=== PATIENT | male | born 2000 | race Caucasian/White ===

== ENCOUNTER 2023-01-23 22:05 | Inpatient (IN) | payer BC ==
[~2023-01-23] VITALS: Ht 187.9 cm; Wt 108.6 kg
[2023-01-23 23:33] LABS: BILIRUBIN,URINE NEGATIVE (NEGATIVE); CLARITY,URINE CLEAR; COLOR,URINE YELLOW; GLUCOSE, URINE (UA) NEGATIVE (NEGATIVE); KETONES,URINE NEGATIVE (NEGATIVE); NITRITE,URINE NEGATIVE (NEGATIVE); PH,URINE 5.5 (5-9); PROTEIN,URINE NEGATIVE (NEGATIVE)
[2023-01-23 23:34] LABS: BACTERIA,URINE TRACE /HPF; LEUKOCYTE ESTERASE ,URINE NEGATIVE (NEGATIVE)
[2023-01-23] MEDS ORDERED: KETOROLAC INJ 30 MG/ML VIAL IVP STA (23:54)
--- NOTE | 2023-01-23 23:59 | ED General ---
General Chief Complaint: Cough/Cold/Flu Symptoms Stated Complaint: LOWER RT ABD PAIN, COUGH, HEADACHE Nursing Triage Note: PATIENT STATES THAT HE HAS BEEN COUGHING FOR THE PAST WEEK AND TODAY HIS LOWER RIGHT ABD BEGAN TO HURT. HE HAS BEEN TAKING DAYQUIL/NIGHTQUIL FOR THE COUGH. Source of Information: Patient History of Present Illness Date Seen by Provider: Jan 23, 2023 Time Seen by Provider: 22:22 Initial Comments PT ARRIVES VIA POV FROM HOME WITH FEMALE FRIEND PT STATE HE HAS HAD COUGH AND CONGESTION FOR THE LAST WEEK NO FEVER AT ANY TIME. NO SWEATS OR CHILLS NO DIFFICULTY BREATHING NO SINUS PAIN NO SORE THROAT C/O BODY ACHES C/O HEADACHE--MOSTLY WITH COUGHING THESE SYMPTOMS ARE NOT ANY DIFFERENT TODAY HAS NOT SOUGHT CARE UNTIL TODAY HAS BEEN TAKING DAYQUIL/NYQIL WITH A LITTLE IMPROVEMENT IN SYMPTOMS ABOUT 5-6 HOURS AGO, PT BEGAN HAVING RLQ PAIN--INITIALLY JUST THOUGHT IT WAS FROM COUGHING. PAIN IS CONSTANT, AND IS WORSE WITH ANY MOVEMENTS HE TRIED TO EAT AROUND 1800, BUT PAIN HAS CONTINUED TO GET WORSE HAS NOT TAKEN ANYTHING FOR PAIN DID START FEELING HOT TONIGHT WELL, BUT HAS NOT CHECKED TEMP NO HISTORY OF SIMILAR NO CHRONIC MEDICAL PROBLEMS OR DAILY MEDICATIONS NO PRIOR SURGERIES DENIES SMOKING, ALCOHOL OR DRUG USE PCP: NONE Allergies and Home Medications Allergies Coded Allergies: No Known Drug Allergies (Unverified , 01/23/23) Patient Home Medication List Home Medication List Reviewed: Yes Review of Systems Review of Systems Constitutional: see HPI EENTM: see HPI, nose congestion Respiratory: see HPI, cough; No short of breath, No wheezing Cardiovascular: no symptoms reported; No chest pain Gastrointestinal: see HPI, abdominal pain; No diarrhea, No nausea, No vomiting Genitourinary: no symptoms reported Musculoskeletal: see HPI (BODY ACHES) Skin: no symptoms reported Psychiatric/Neurological: See HPI, Headache Hematologic/Lymphatic: No Symptoms Reported Immunological/Allergic: no symptoms reported Past Wadsjdg-Szwdda-Hgghlg Hx Patient Social History Tobacco Use?: No Use of E-Cig and/or Vaping dev: No Substance use?: No Alcohol Use?: No Pt feels they are or have been: No Immunizations Up To Date Influenza Vaccine Up-to-Date: No; Not Current First/Initial COVID19 Vaccinat: none Past Medical History Surgeries: No Respiratory: No Cardiac: No Neurological: No Genitourinary: No Gastrointestinal: No Musculoskeletal: No Endocrine: No HEENT: No Cancer: No Psychosocial: No Integumentary: No Blood Disorders: No Physical Exam Vital Signs Vital Signs - First Documented 01/23/23 22:14 Temp 37.7 Pulse 95 Resp 20 B/P (MAP) 126/86 (99) Pulse Ox 99 O2 Delivery Room Air Capillary Refill : Less Than 3 Seconds Height, Weight, BMI Height: '" Weight: lbs. oz. kg; 30.00 BMI Method: General Appearance: No Apparent Distress, WD/WN, Other (OCCASIONAL NON- PRODUCTIVE COUGH) HEENT: PERRL/EOMI, TMs Normal, Pharynx Normal, Moist Mucous Membranes, Other (NASAL CONGESTION, CLEAR POST NASAL DRAINAGE. NO SINUS TENDERNESS) Neck: Normal Inspection Respiratory: Normal Breath Sounds, No Accessory Muscle Use, No Respiratory Distress Cardiovascular: Regular Rate, Rhythm, No Edema, No JVD, No Murmur, Normal Peripheral Pulses Gastrointestinal: Normal Bowel Sounds, No Organomegaly, No Pulsatile Mass, Soft; No Distended; Guarding, Rebound, Tenderness (MARKED RLQ TENDERNESS, WITH REBOUND, + ROVSING'S, + PSOAS, + OBTURATOR. PT LAYING SLIGHTLY ON HIS SIDE, WITH RIGHT LEG FLEXED AT HIP AND KNEE--MUCH PAIN IN RLQ WITH ANY ATTEMPT TO STRAIGHTEN RIGHT LEG, + HEEL TAP ) Back: No CVA Tenderness Extremity: Normal Inspection Neurologic/Psychiatric: Alert, Oriented x3, No Motor/Sensory Deficits, Normal Mood/Affect, senior marketing manager II-XII Norm as Tested Skin: Normal Color (FACE FLUSHED), Warm/Dry; No Rash Progress/Results/Core Measures Suspected Sepsis SIRS Temperature: Pulse: 95 Respiratory Rate: 20 Laboratory Tests 01/23/23 22:22: White Blood Count 12.8H Blood Pressure 126 /86 Mean: 99 Laboratory Tests 01/23/23 22:22: Creatinine 1.17, Platelet Count 309, Total Bilirubin 0.2 Results/Orders Lab Results Laboratory Tests Test 01/23/23 22:22 01/23/23 22:45 01/23/23 23:03 Range/Units White Blood Count 12.8 H 4.3-11.0 10^3/uL Red Blood Count 4.82 4.30-5.52 10^6/uL Hemoglobin 14.3 13.3-17.7 g/dL Hematocrit 42 40-54 % Mean Corpuscular Volume 88 80-99 fL Mean Corpuscular Hemoglobin 30 25-34 pg Mean Corpuscular Hemoglobin Concent 34 32-36 g/dL Red Cell Distribution Width 11.6 10.0-14.5 % Platelet Count 309 130-400 10^3/uL Mean Platelet Volume 9.5 9.0-12.2 fL Immature Granulocyte % (Auto) 0 % Neutrophils (%) (Auto) 67 42-75 % Lymphocytes (%) (Auto) 23 12-44 % Monocytes (%) (Auto) 8 0-12 % Eosinophils (%) (Auto) 2 0-10 % Basophils (%) (Auto) 0 0-10 % Neutrophils # (Auto) 8.6 H 1.8-7.8 10^3/uL Lymphocytes # (Auto) 2.9 1.0-4.0 10^3/uL Monocytes # (Auto) 1.0 0.0-1.0 10^3/uL Eosinophils # (Auto) 0.2 0.0-0.3 10^3/uL Basophils # (Auto) 0.0 0.0-0.1 10^3/uL Immature Granulocyte # (Auto) 0.0 0.0-0.1 10^3/uL Sodium Level 141 135-145 MMOL/L Potassium Level 3.8 3.6-5.0 MMOL/L Chloride Level 103 98-107 MMOL/L Carbon Dioxide Level 26 21-32 MMOL/L Anion Gap 12 5-14 MMOL/L Blood Urea Nitrogen 15 7-18 MG/DL Creatinine 1.17 0.60-1.30 MG/DL Estimat Glomerular Filtration Rate 92 BUN/Creatinine Ratio 13 Glucose Level 107 H 70-105 MG/DL Calcium Level 9.5 8.5-10.1 MG/DL Corrected Calcium 9.1 8.5-10.1 MG/DL Total Bilirubin 0.2 0.1-1.0 MG/DL Aspartate Amino Transf (AST/SGOT) 22 5-34 U/L Alanine Aminotransferase (ALT/SGPT) 30 0-55 U/L Alkaline Phosphatase 71 40-136 U/L Total Protein 7.6 6.4-8.2 GM/DL Albumin 4.5 3.2-4.5 GM/DL Amylase Level 42 25-125 U/L Lipase 10 8-78 U/L Influenza Type A (RT-PCR) Not Detected Not Detecte Influenza Type B (RT-PCR) Not Detected Not Detecte SARS-CoV-2 RNA (RT-PCR) Not Detected Not Detecte Urine Color YELLOW Urine Clarity CLEAR Urine pH 5.5 5-9 Urine Specific [place] 1.025 H 1.016-1.022 Urine Protein NEGATIVE NEGATIVE Urine Glucose (UA) NEGATIVE NEGATIVE Urine Ketones NEGATIVE NEGATIVE Urine Nitrite NEGATIVE NEGATIVE Urine Bilirubin NEGATIVE NEGATIVE Urine Urobilinogen 0.2 < = 1.0 MG/DL Urine Leukocyte Esterase NEGATIVE NEGATIVE Urine RBC (Auto) NEGATIVE NEGATIVE Urine RBC NONE /HPF Urine WBC NONE /HPF Urine Squamous Epithelial Cells NONE /HPF Urine Crystals NONE /LPF Urine Bacteria TRACE /HPF Urine Casts NONE /LPF Urine Mucus SMALL H /LPF Urine Culture Indicated NO My Orders Orders - JAIRO POWELL DO Covid 19 Inhouse Test (01/23/23 22:22) Ua Culture If Indicated (01/23/23 22:22) Influenza A And B By Pcr (01/23/23 22:22) Ed Iv/Invasive Line Start (01/23/23 23:54) Monitor-Rhythm Ecg Trace Only (01/23/23 23:54) Amylase (01/23/23 23:54) Cbc And Automated Diff (01/23/23 23:54) Comprehensive Metabolic Panel (01/23/23 23:54) Lipase (01/23/23 23:54) Ed Iv/Invasive Line Start (01/23/23 23:54) Lactated Ringers 1,000 Ml (Lactated Ring (01/24/23 00:00) Ketorolac Injection (Ketorolac Injection (01/23/23 23:54) Ct Abd/Pelv W (Appendicitis) (01/24/23 00:01) Chest Pa/Lat (2 View) (01/24/23 00:01) Lactated Ringers 1,000 Ml (Lactated Ring (01/24/23 00:07) Ketorolac Injection (Ketorolac Injection (01/24/23 00:07) Iohexol Injection (Omnipaque 350 Mg/Ml 1 (01/24/23 00:45) Received Contrast (Hold Metformin- Contr (01/24/23 00:45) Ns (Ivpb) 100 Ml (Sodium Chloride 0.9% 1 (01/24/23 00:45) Piperacillin/Tazobactam (Piperacillin/Ta (01/24/23 01:15) Ed Iv/Invasive Line Start (01/24/23 01:11) Lactated Ringers 1,000 Ml (Lactated Ring (01/24/23 01:15) Medications Given in ED Current Medications Medications Dose Ordered Sig/Jono Route Start Time Stop Time Status Last Admin Dose Admin Iohexol 100 ml ONCE ONCE IV 01/24/23 00:45 01/24/23 00:46 DC 01/24/23 00:35 80 ML Lactated Ringer's 1,000 ml @ 0 mls/hr Q0M ONCE IV 01/24/23 00:00 01/24/23 00:01 DC 01/24/23 00:09 999 MLS/HR Lactated Ringer's 1,000 ml @ 0 mls/hr Q0M ONCE IV 01/24/23 01:15 01/24/23 01:16 DC 01/24/23 01:19 999 MLS/HR Piperacillin Sod/ Tazobactam Sod 4.5 gm/Sodium Chloride 100 ml @ 200 mls/hr ONCE ONCE IV 01/24/23 01:15 01/24/23 01:44 DC 01/24/23 01:19 200 MLS/HR Sodium Chloride 100 ml ONCE ONCE IV 01/24/23 00:45 01/24/23 00:46 DC 01/24/23 00:35 80 ML Vital Signs/I&O 01/23/23 01/23/23 22:14 23:56 Temp 37.7 37.2 Pulse 95 86 Resp 20 20 B/P (MAP) 126/86 (99) 125/79 (94) Pulse Ox 99 98 O2 Delivery Room Air Room Air Capillary Refill : Less Than 3 Seconds Blood Pressure Mean: 99 Progress Note : Progress Note PLACED IN ISOLATION ROOM PPE WORN VITALS ON ARRIVAL: TEMP 37.7=99.8, HR 95, RR 20, BP 126/86, O2 SAT 99% ON ROOM AIR GIVEN: -IV FLUIDS -TORADOL--SIGNIFICANT IMPROVEMENT IN PAIN -ZOSYN LABS: -CBC WITH WBC 12.8, OTHERWISE NORMAL -CMP NORMAL -AMYLASE/LIPASE NORMAL -UA CLEAR -COVID/FLU NEGATIVE CT WITH APPENDICITIS, NO PERFORATION AND NO ABSCESS CXR IS NORMAL, PENDING RADIOLOGIST REVIEW UNEVENTFUL ER STAY VITALS STABLE SYMPTOMS IMPROVED AT TIME OF ADMIT DISCUSSED TEST RESULTS, NEED FOR ADMIT AND PT IS AGREEABLE TO PLAN Diagnostic Imaging Comments CXR--NO ACUTE PROCESS, PENDING RADIOLOGIST REVIEW CT ABDOMEN/PELVIS--+ APPENDICITIS WITHOUT PERFORATION OR ABSCESS, PER [facility] VIA PHONE AND FAX AT 010 Reviewed: Reviewed by Me, Discussed w/Radiologist Departure Communication (Admissions) 102--SPOKE WITH DR. AGEE, SURGEON BLASTING MINER. ACCEPTS PT FOR ADMIT. ORDERS NOTED Impression Primary Impression: Appendicitis Additional Impression: Upper respiratory infection Disposition: ADMITTED INPATIENT Condition: Improved Admissions Decision to Admit Reason: Admit from ER (General) Decision to Admit/Date: Jan 24, 2023 Time/Decision to Admit Time: 01:05 Departure-Patient Inst. Referrals: NO,LOCAL PHYSICIAN (PCP/Family) Primary Care Physician JAIRO POWELL DO Jan 23, 2023 23:59
[2023-01-24] VITALS (11 sets, daily range): BP systolic 108–127; BP diastolic 52–80
[2023-01-24 00:01] LABS: BASOPHILS % (AUTO) 0 % (0-10); EOSINOPHILS # (AUTO) 0.2 10^3/uL (0.0-0.3); EOSINOPHILS % (AUTO) 2 % (0-10); HEMATOCRIT 42 % (40-54); HEMOGLOBIN 14.3 g/dL (13.3-17.7); LYMPHOCYTES # (AUTO) 2.9 10^3/uL (1.0-4.0); LYMPHOCYTES % (AUTO) 23 % (12-44); MEAN CORPUSCULAR HEMOGLOBIN 30 pg (25-34); MEAN CORPUSCULAR HGB CONC 34 g/dL (32-36); MEAN CORPUSCULAR VOLUME 88 fL (80-99); MEAN PLATELET VOLUME 9.5 fL (9.0-12.2); MONOCYTES % (AUTO) 8 % (0-12); NEUTROPHILS # (AUTO) 8.6 10^3/uL (1.8-7.8); NEUTROPHILS % (AUTO) 67 % (42-75); PLATELET COUNT 309 10^3/uL (130-400); WHITE BLOOD COUNT 12.8 10^3/uL (4.3-11.0)
[2023-01-24 00:03] LABS: ALBUMIN 4.5 GM/DL (3.2-4.5); POTASSIUM 3.8 MMOL/L (3.6-5.0)
[2023-01-24 00:04] LABS: CALCIUM 9.5 MG/DL (8.5-10.1)
[2023-01-24 00:06] LABS: TOTAL PROTEIN 7.6 GM/DL (6.4-8.2)
[2023-01-24 00:07] LABS: BILIRUBIN,TOTAL 0.2 MG/DL (0.1-1.0)
[2023-01-24] MEDS ORDERED: KETOROLAC INJ 30 MG/ML VIAL ONE (00:07)
[2023-01-24] MEDS ORDERED: LACTATED RINGERS 1,000 ML 1,000 ML IV ONE ×3 (00:07→01:15)
[2023-01-24 00:09] LABS: CREATININE SERUM 1.17 MG/DL (0.60-1.30)
[2023-01-24] MEDS ORDERED: NS 100 ML (IVPB) BAG IV ONE (00:45)
[2023-01-24] MEDS ORDERED: IOHEXOL 350 MG/ML 100 ML (OMNIPAQUE 350) VIAL IV ONE (00:45)
[2023-01-24] MEDS ORDERED: HOLD METFORMIN - RECEIVED CONTRAST 20 ML VIAL IV SCH (00:45)
[2023-01-24] MEDS ORDERED: PIPERACILLIN/Tazobactam 4.5 GM in NS (IVPB) 100 ML 100 ML IV ONE (01:15)
[2023-01-24] MEDS: D5 1/2NS + KCL 20 MEQ/L 1000ML 1,000 ML IV SCH ×2 (02:29→08:40)
[2023-01-24] MEDS ORDERED: KETOROLAC INJ 30 MG/ML VIAL IVP PRN (02:30)
[2023-01-24] MEDS ORDERED: fentaNYL INJECTION 100 MCG/2 ML VIAL IV PRN (02:30)
[2023-01-24] MEDS ORDERED: ONDANSETRON INJECTION 4 MG/2 ML (SDV) IV PRN (02:30)
[2023-01-24 05:48] LABS: BASOPHILS # (AUTO) 0.1 10^3/uL (0.0-0.1); BASOPHILS % (AUTO) 1 % (0-10); EOSINOPHILS # (AUTO) 0.2 10^3/uL (0.0-0.3); EOSINOPHILS % (AUTO) 2 % (0-10); HEMATOCRIT 36 % (40-54); HEMOGLOBIN 12.7 g/dL (13.3-17.7); LYMPHOCYTES # (AUTO) 2.8 10^3/uL (1.0-4.0); LYMPHOCYTES % (AUTO) 23 % (12-44); MEAN CORPUSCULAR HEMOGLOBIN 30 pg (25-34); MEAN CORPUSCULAR HGB CONC 35 g/dL (32-36); MEAN CORPUSCULAR VOLUME 87 fL (80-99); MEAN PLATELET VOLUME 9.2 fL (9.0-12.2); MONOCYTES # (AUTO) 0.9 10^3/uL (0.0-1.0); MONOCYTES % (AUTO) 8 % (0-12); NEUTROPHILS # (AUTO) 8.4 10^3/uL (1.8-7.8); NEUTROPHILS % (AUTO) 68 % (42-75); PLATELET COUNT 222 10^3/uL (130-400); WHITE BLOOD COUNT 12.4 10^3/uL (4.3-11.0)
[2023-01-24 06:31] LABS: CALCIUM 8.6 MG/DL (8.5-10.1); CREATININE SERUM 1.01 MG/DL (0.60-1.30); POTASSIUM 3.7 MMOL/L (3.6-5.0)
--- NOTE | 2023-01-24 06:51 | Diagnostic Imaging Report ---
PROCEDURE: CT abdomen and pelvis with contrast, rule out appendicitis, 01/24/2023. TECHNIQUE: Multiple contiguous axial images were obtained through the abdomen and pelvis after the administration of intravenous contrast. All CT scans use one or more of the following dose optimizing techniques: automated exposure control, MA and/or KvP adjustment based on patient size and exam type or iterative reconstruction. INDICATION: Cough and fever. Right lower quadrant pain. FINDINGS: The gallbladder is contracted. Liver and spleen unremarkable. Adrenal glands and pancreas normal. Kidneys unremarkable. Lung bases clear. The appendix is dilated measuring almost 1 cm in thickness. Minimal adjacent inflammatory change is seen. There are adjacent prominent lymph nodes likely reactive. There is no obstructive process. There is no free fluid. No free air or abscess formation. There is no acute osseous abnormality. Multiple hyperdensities throughout the osseous structures, likely bone islands. IMPRESSION: 1. Findings suspicious for acute appendicitis with adjacent likely reactive lymphadenopathy. No free air or abscess appreciated. Otherwise incidental findings as above. 2. The pertinent findings agree with the preliminary report. Dictated by: Dictated on workstation # [id number]
[2023-01-24] MEDS ORDERED: PIPERACILLIN/Tazobactam 4.5 GM in NS (IVPB) 100 ML 100 ML IV SCH (08:00)
--- NOTE | 2023-01-24 08:02 | Diagnostic Imaging Report ---
INDICATION: Cough and fever EXAMINATION: Two-view chest 01/24/2023 FINDINGS: The cardiomediastinal silhouette is unremarkable. The pulmonary vasculature is within normal limits. The lungs and pleural spaces are clear. IMPRESSION: No evidence of an acute cardiopulmonary process. Dictated by: Dictated on workstation # [id number]
--- NOTE | 2023-01-24 09:05 | History & Physical-Surgical ---
History of Present Illness History of Present Illness Patient Consulted On(augusto/time) 01/24/23 09:00 Time Seen by Provider: 08:39 History of Present Illness Surgery asked to admit regarding Acute Appendicitis HPI per ED: PT ARRIVES VIA POV FROM HOME WITH FEMALE FRIEND, PT STATE HE HAS HAD COUGH AND CONGESTION FOR THE LAST WEEK, NO FEVER AT ANY TIME. NO SWEATS OR CHILLS, NO DIFFICULTY BREATHING, NO SINUS PAIN, NO SORE THROAT C/O BODY ACHES, C/O HEADACHE--MOSTLY WITH COUGHING, THESE SYMPTOMS ARE NOT ANY DIFFERENT TODAY, HAS NOT SOUGHT CARE UNTIL TODAY, HAS BEEN TAKING DAYQUIL/NYQIL WITH A LITTLE IMPROVEMENT IN SYMPTOMS, ABOUT 5-6 HOURS AGO, PT BEGAN HAVING RLQ PAIN--INITIALLY JUST THOUGHT IT WAS FROM COUGHING. PAIN IS CONSTANT, AND IS WORSE WITH ANY MOVEMENTS, HE TRIED TO EAT AROUND 1800, BUT PAIN HAS CONTINUED TO GET WORSE, HAS NOT TAKEN ANYTHING FOR PAIN, DID START FEELING HOT TONIGHT WELL, BUT HAS NOT CHECKED TEMP, NO HISTORY OF SIMILAR, NO CHRONIC MEDICAL PROBLEMS OR DAILY MEDICATIONS, NO PRIOR SURGERIES,DENIES SMOKING, ALCOHOL OR DRUG USE When I spoke to pt this am he states he still has pain in RLQ, but slightly better. He denies loss of appetite; "I thought I was just hungry and I ate yesterday, but it didn't get better". He has not eaten since midnight. He describes pain as sharp and constant, rating it 4-5 out of 10. He denied any nausea or vomiting. Allergies and Home Medications Allergies Coded Allergies: No Known Drug Allergies (Unverified , 01/23/23) Patient Home Medication List Home Medication List Reviewed: Yes Past Hetmrib-Rbfvsv-Azcgso Hx Patient Social History Smoking Status: Never a Smoker Alcohol Use?: No Surgeries History of Surgeries: Yes Surgeries: Orthopedic (left shoulder twice) Respiratory History of Respiratory Disorde: No Cardiovascular History of Cardiac Disorders: No Neurological History of Neurological Disord: No Genitourinary History of Genitourinary Disor: No Gastrointestinal History of Gastrointestinal Di: No Musculoskeletal History of Musculoskeletal Dis: No Endocrine History of Endocrine Disorders: No HEENT History of HEENT Disorders: No Cancer History of Cancer: No Psychosocial History of Psychiatric Problem: No Integumentary History of Skin or Integumenta: No Blood Transfusions History of Blood Disorders: No Family Medical History Significant Family History: Heart Disease (Grandmother), Diabetes (grandmother) Review of Systems-General Constitutional: No chills, No diaphoresis EENTM: No blurred vision, No double vision, No mouth swelling, No epistaxis Respiratory: No cough, No dyspnea on exertion Cardiovascular: No chest pain, No edema, No palpitations Gastrointestinal: abdominal pain; No jaundice, No loss of appetite, No nausea, No vomiting Genitourinary: No dysuria, No frequency, No hematuria Musculoskeletal: No back pain; joint pain, joint swelling; No muscle stiffness Skin: No change in color, No change in hair/nails Psychiatric/Neurological: Denies Anxiety, Denies Depressed, Denies Seizure, Denies Tremors Physical Exam-General Problems Physical Exam Vital Signs Vital Signs - First Documented 01/23/23 22:14 Temp 37.7 Pulse 95 Resp 20 B/P (MAP) 126/86 (99) Pulse Ox 99 O2 Delivery Room Air Capillary Refill : Less Than 3 Seconds General Appearance: WD/WN, mild distress Eyes: Bilateral Eye PERRL, Bilateral Eye EOMI HEENT: pharynx normal; No scleral icterus (R), No scleral icterus (L) Neck: non-tender, supple Respiratory: chest non-tender, lungs clear, normal breath sounds, no respiratory distress, no accessory muscle use Cardiovascular: regular rate, rhythm, no murmur Gastrointestinal: soft, no organomegaly, tenderness (RLQ with light palpation); No hernia Back: no CVA tenderness, no vertebral tenderness Extremities: non-tender, no pedal edema, no calf tenderness, normal capillary refill Neurologic/Psychiatric: distribution manager II-XII nml as tested, no motor/sensory deficits, alert, normal mood/affect, oriented x 3 Skin: normal color, warm/dry Lymphatic: no adenopathy (neck, axilla or groin) Data Review Labs Laboratory Tests 01/23/23 22:22: White Blood Count 12.8H, Red Blood Count 4.82, Hemoglobin 14.3, Hematocrit 42, Mean Corpuscular Volume 88, Mean Corpuscular Hemoglobin 30, Mean Corpuscular Hemoglobin Concent 34, Red Cell Distribution Width 11.6, Platelet Count 309, Mean Platelet Volume 9.5, Immature Granulocyte % (Auto) 0, Neutrophils (%) (Auto) 67, Lymphocytes (%) (Auto) 23, Monocytes (%) (Auto) 8, Eosinophils (%) (Auto) 2, Basophils (%) (Auto) 0, Neutrophils # (Auto) 8.6H, Lymphocytes # (Auto) 2.9, Monocytes # (Auto) 1.0, Eosinophils # (Auto) 0.2, Basophils # (Auto) 0.0, Immature Granulocyte # (Auto) 0.0, Sodium Level 141, Potassium Level 3.8, Chloride Level 103, Carbon Dioxide Level 26, Anion Gap 12, Blood Urea Nitrogen 15, Creatinine 1.17, Estimat Glomerular Filtration Rate 92, BUN/Creatinine Ratio 13, Glucose Level 107H, Calcium Level 9.5, Corrected Calcium 9.1, Total Bilirubin 0.2, Aspartate Amino Transf (AST/SGOT) 22, Alanine Aminotransferase (ALT/SGPT) 30, Alkaline Phosphatase 71, Total Protein 7.6, Albumin 4.5, Amylase Level 42, Lipase 10 01/23/23 22:45: Influenza Type A (RT-PCR) Not Detected, Influenza Type B (RT-PCR) Not Detected, SARS-CoV-2 RNA (RT-PCR) Not Detected 01/23/23 23:03: Urine Color YELLOW, Urine Clarity CLEAR, Urine pH 5.5, Urine Specific [place] 1.025H, Urine Protein NEGATIVE, Urine Glucose (UA) NEGATIVE, Urine Ketones NEGATIVE, Urine Nitrite NEGATIVE, Urine Bilirubin NEGATIVE, Urine Urobilinogen 0.2, Urine Leukocyte Esterase NEGATIVE, Urine RBC (Auto) NEGATIVE, Urine RBC NONE, Urine WBC NONE, Urine Squamous Epithelial Cells NONE, Urine Crystals NONE, Urine Bacteria TRACE, Urine Casts NONE, Urine Mucus SMALLH, Urine Culture Indicated NO 01/24/23 05:29: White Blood Count 12.4H, Red Blood Count 4.19L, Hemoglobin 12.7L, Hematocrit 36L , Mean Corpuscular Volume 87, Mean Corpuscular Hemoglobin 30, Mean Corpuscular Hemoglobin Concent 35, Red Cell Distribution Width 11.6, Platelet Count 222, Mean Platelet Volume 9.2, Immature Granulocyte % (Auto) 0, Neutrophils (%) (Auto) 68, Lymphocytes (%) (Auto) 23, Monocytes (%) (Auto) 8, Eosinophils (%) (Auto) 2, Basophils (%) (Auto) 1, Neutrophils # (Auto) 8.4H, Lymphocytes # (Auto) 2.8, Monocytes # (Auto) 0.9, Eosinophils # (Auto) 0.2, Basophils # (Auto) 0.1, Immature Granulocyte # (Auto) 0.0, Sodium Level 138, Potassium Level 3.7, Chloride Level 105, Carbon Dioxide Level 26, Anion Gap 7, Blood Urea Nitrogen 14, Creatinine 1.01, Estimat Glomerular Filtration Rate 109, BUN/Creatinine Ratio 14, Glucose Level 118H, Calcium Level 8.6 Radiology Date of Exam:01/24/23 CT ABD/PELV W (APPENDICITIS) PROCEDURE: CT abdomen and pelvis with contrast, rule out appendicitis, 01/24/2023. TECHNIQUE: Multiple contiguous axial images were obtained through the abdomen and pelvis after the administration of intravenous contrast. All CT scans use one or more of the following dose optimizing techniques: automated exposure control, MA and/or KvP adjustment based on patient size and exam type or iterative reconstruction. INDICATION: Cough and fever. Right lower quadrant pain. FINDINGS: The gallbladder is contracted. Liver and spleen unremarkable. Adrenal glands and pancreas normal. Kidneys unremarkable. Lung bases clear. The appendix is dilated measuring almost 1 cm in thickness. Minimal adjacent inflammatory change is seen. There are adjacent prominent lymph nodes likely reactive. There is no obstructive process. There is no free fluid. No free air or abscess formation. There is no acute osseous abnormality. Multiple hyperdensities throughout the osseous structures, likely bone islands. IMPRESSION: 1. Findings suspicious for acute appendicitis with adjacent likely reactive lymphadenopathy. No free air or abscess appreciated. Otherwise incidental findings as above. 2. The pertinent findings agree with the preliminary report. Dictated on workstation # [id number] Dict: 01/24/23 0636 Trans: 01/24/23 0650 [facility] [id number] Interpreted by: EZEKIEL GARCÍA MD Assessment/Plan Assessment/Plan Admission Diagonsis Acute Appendicitis Admission Status: Observation Assessment/Plan Acute Appendicitis I reviewed the CT myself and spoke with the ER physician last night about this case. Pt still has mildly elevated WBC at 12.4 and has a dilated appendix with mild inflammatory changes around it. I gave the pt options, he could try ABX and no surgery or he could have the appendix taken out. He did not want to try non-operative management. I will get consent for Laparoscopic Appendectomy and all other indicated procedures. He was admitted and made NPO, started on Zosyn, pain meds as needed and IV fluids. I went over the procedure and discussed risks and complications not limited to; pain, bleeding, infection, scar, damage to bowel and need for further procedure. All questions answered to his satisfaction. DAMION AGEE DO Jan 24, 2023 09:05
[2023-01-24] MEDS ORDERED: ROCURONIUM 50 MG/5 ML VIAL IV ONE (09:54)
[2023-01-24] MEDS ORDERED: proPOfol INJECTION 200 MG/20 ML VIAL IV ONE (09:54)
[2023-01-24] MEDS ORDERED: fentaNYL INJECTION 100 MCG/2 ML VIAL ONE (09:54)
[2023-01-24] MEDS ORDERED: LIDOCAINE PF 2% 5 ML VIAL ONE (09:54)
[2023-01-24] MEDS ORDERED: ONDANSETRON INJECTION 4 MG/2 ML (SDV) ONE (09:54)
[2023-01-24] MEDS ORDERED: MIDAZOLAM INJ 2 MG/2 ML VIAL ONE (09:55)
[2023-01-24] MEDS ORDERED: LIDOCAINE 2% w/EPI 1:100,000 20 ML VIAL ONE (10:11)
[2023-01-24] MEDS ORDERED: LACTATED RINGERS 1,000 ML 1,000 ML IV PRN (12:00)
[2023-01-24] MEDS ORDERED: SEVOFLURANE (ULTANE) 15 ML INHAL SOLN ONE (12:33)
[2023-01-24] MEDS ORDERED: NEOSTIGMINE 1 MG/1ML 10 ML VIAL ONE (12:35)
[2023-01-24] MEDS ORDERED: GLYCOPYRROLATE INJ 0.2 MG/ML 2 ML VIAL ONE (12:35)
--- NOTE | 2023-01-24 12:56 | Anesthesia-General Post-Op ---
General Patient Condition Mental Status/LOC: Same as Preop Cardiovascular: Satisfactory Nausea/Vomiting: Absent Respiratory: Satisfactory Pain: Controlled Complications: Absent Post Op Complications Complications None Follow Up Care/Instructions Patient Instructions None needed. Anesthesia/Patient Condition Patient Condition Patient is doing well, no complaints, stable vital signs, no apparent adverse anesthesia problems. No complications reported per nursing. MELQUIADES NUÑEZ CRNA Jan 24, 2023 12:56
[2023-01-24] MEDS ORDERED: morphine INJ 10 MG/ML 1ML (SYR OR VIAL) IVP ONE (13:00)
[2023-01-24] MEDS ORDERED: ONDANSETRON INJECTION 4 MG/2 ML (SDV) IVP PRN (13:00)
[2023-01-24] MEDS ORDERED: fentaNYL INJECTION 100 MCG/2 ML VIAL IVP ONE (13:00)
[2023-01-24] MEDS ORDERED: morphine INJ 10 MG/ML 1ML (SYR OR VIAL) ONE (13:23)
--- NOTE | 2023-01-24 13:50 | Progress Note-Post Operative ---
Post-Operative Progess Note Surgeon (s)/Core Analyst (s) Surgeon DAMION AGEE DO Core Analyst: none Pre-Operative Diagnosis Acute Appy Post-Operative Diagnosis Acute Appy with purulent fluid in pelvis, no perforation Procedure & Operative Findings Date of Procedure 01/24/23 Procedure Performed/Findings PROCEDURE: Laparoscopic appendectomy. COMPLICATIONS: None. INDICATIONS: The patient is a 22 year old male who has been having right lower quadrant abdominal pain. Patient's exam consistent with appendicitis. I discussed risk and benefits of laparoscopic appendectomy and all indicated procedures. The patient understands the risks and benefits and wishes to proceed. Consent was signed on the chart. DESCRIPTION OF PROCEDURE: The patient was taken to the operating suite, prepped and draped in a sterile fashion. Timeout was performed. Local anesthetic was infiltrated just above the umbilicus and 11- blade scalpel was used to make a skin incision. Cautery was used to dissect down to the fascia and scored. Kochers were used to grasp and elevate it and the abdomen was then entered. A 0 Vicryl was placed in a figure- of-eight fashion for closure at the end of the case. The balloon trocar was inserted into the abdomen and pneumoperitoneum was achieved. Under direct visualization of the laparoscope, a 5 mm trocar was placed in the suprapubic region and a 5 mm trocar was placed in the left lower quadrant. Appendix was located, it was inflamed, thickened and found purulent fluid in the pelvis. The base of the appendix was dissected around. Once at the base an Endo-JULIANA 2.5 stapler was then fired across the base of the appendix. The mesoappendix was then divided. It was then placed in an Endobag and removed through the 12 mm trocar site. The abdomen was then irrigated and suctioned. No other pathology noted. The abdomen was then desufflated and the trocars were removed. The 0 Vicryl placed at the beginning of the case was then tied closing the 12 mm fascial defect. The skin was then closed using 4-0 Monocryl in a subcuticular fashion. The abdomen was then washed and dried and Skin Affix was placed over the incisions. The patient tolerated the procedure well without any complications and was taken to the recovery room in stable condition. Anesthesia Type GET Estimated Blood Loss Estimated blood loss (mL): scant Specimens/Packing Specimens Removed appendix DAMION AGEE DO Jan 24, 2023 13:50
[2023-01-24] MEDS ORDERED: ACHD5005 PO (13:51)
--- NOTE | 2023-01-24 13:52 | Discharge Inst-Surgical ---
Discharge Inst-Surgical Depart Medication/Instructions New, Converted or Re-Newed RX: Transmitted to Pharmacy Patient Instructions Follow up Appt: Make appointment for 1 week. [phone] Instructions: No lifting greater than 20 pounds. No strenuous activity. May shower in 24 hours, no tub bath or soaking. Use incentive spirometer at home as directed. No Smoking Skin/Wound Care: May remove bandages in am. You need to leave the Dermabond on incision it will fall off on it's own. Symptoms to Report: Appetite Changes, Extremity Discoloration, Numbness/Tingling, Swelling Increased, Bleeding Excessive, Eyesight Changes, Pain Increased, Urine Color Change, Constipation(Persistent), Fever over 101 degree F, Pain/Pressure in chest, Urinating Difficulty, Cough Up/Vomit Blood, Heart Beat Irreg/Pounding, Pain/Pressure in jaw, Cramps in feet or legs, Lightheadedness, Pain/Pressure in shoulder, Diarrhea(Persistent), Memory Changes Suddenly, Questions/Concerns, Weight gain consecutive days, Dizziness/Fainting, Nausea/Vomiting, Shortness of Breath, Weight gain over 2 pounds If questions or concerns contact your physician Or seek help at emergency department. Activity Activity as Tolerated: Yes Activity Instructions: Avoid Stress to Incision Driving Instructions: No Driving/Refer to Dr. Vergara Discharge Diet: No Restrictions Diet After 24 Hours: Clear Liquid if Nauseous If Any Problems/Questions/Issu: Contact Your Physician, Go to Emergency Room Skin/Wound Care Infection Signs and Symptoms: Increased Redness, Foul Odor of Wound, Increased Drainage, Skin Itchy or Has a Rash, Increased Swelling, Temperature Above 101 F Wound Care Comment: heating pad to shoulder or neck tonight for pain Bathing Instructions: Shower Stitches/[place]/Dermabond Dis: Dermabond Ice Pack: Ice On and Off Site DAMION AGEE DO Jan 24, 2023 13:52
[2023-01-24] MEDS ORDERED: HYDROcodone/ACETAMINOPHEN 5 MG/325 MG TABLET PO PRN (15:00)
== END 2023-01-24 16:49 | disposition home or self-care (01) | DRG 399 ==
LOC: ER 22:11 → 4TH 01-24 02:01
PROVIDERS: ADMIT Surgery; ATTEND Surgery
PROC: 0DTJ4ZZ Resection of Appendix, Percutaneous Endoscopic Approach (ICD-10-PCS; principal; 2023-01-24 11:45)
DX: K35.80 Unspecified acute appendicitis (principal); J06.9 Acute upper respiratory infection, unspecified; Z11.52 Encounter for screening for COVID-19
CPT/HCPCS: 36415; 71046; 74177; 80048; 80053; 81000; 82150; 83690; 85025; 87081; 87636; 93041